=== PATIENT | female | born 1965 | race Hispanic/Latino ===

== ENCOUNTER 2023-02-24 13:34 | Emergency (ER) | payer BC ==
[2023-02-24 14:27] LABS: #Basophils 0.1 10x3/uL (0.0-0.2); #Eosinphils 0.1 10x3/uL (0.0-0.5); #Monocytes 0.3 10x3/uL (0.0-1.1); %Basophils 0.7 % (0.0-2.0); %Eosinophils 1.2 % (0.0-6.0); %Lymphocytes 20.5 % (18.0-47.0); %Monocytes 3.5 % (0.0-10.0); %Neutrophils 73.9 % (40.0-75.0); Hemoglobin 14.8 g/dL (12.0-15.5); Mean Corpuscular HGB CONC 33.7 g/dL (32.0-36.0); Mean Corpuscular Hemoglobin 28.5 pg (27.0-33.0); Mean Corpuscular Volume 84.6 fl (81.6-98.3); Mean Platelet Volume 10.1 fl (7.4-10.4); Platelet Count 372 10x3/uL (150-450); RBC Distribution Width 13.1 % (11.5-14.5); Red Blood Cell (RBC) Count 5.19 10x6/uL (3.90-5.03); White Blood Cell (WBC) Count 8.1 10x3/uL (3.5-10.5)
[2023-02-24 14:50] LABS: ALT (SGPT) 30 U/L (8-55); AST (SGOT) 29 U/L (5-34); Albumin 4.8 g/dL (3.5-5.0); Alkaline Phosphatase 87 U/L (40-110); Anion Gap 16 mmol/L (10-20); BUN (Urea Nitrogen) 13 mg/dL (9.8-20.1); Bilirubin, Total 0.9 mg/dL (0.2-1.2); Calc. Creatinine Clearance 0 mL/min (70-130); Calcium 9.6 mg/dL (7.8-10.44); Carbon Dioxide 23 mmol/L (22-29); Chloride 102 mmol/L (98-107); Estimated GFR 90; Globulin 3.1 g/dL (2.4-3.5); Glucose 111 mg/dL (70-105); Lipase 185 U/L (8-78); Potassium 3.6 mmol/L (3.5-5.1); Protein, Total 7.9 g/dL (6.0-8.3); Sodium 137 mmol/L (136-145)
== END 2023-02-24 16:58 | disposition home or self-care (01) ==
LOC: CSHERS 13:34
DX: R07.89 Other chest pain (principal); K85.90 Acute pancreatitis without necrosis or infection, unspecified; I25.10 Atherosclerotic heart disease of native coronary artery without angina pectoris; I10 Essential (primary) hypertension
CPT/HCPCS: 36415; 71045; 80053; 83690; 84484; 85025; 93005

== ENCOUNTER 2024-03-07 23:46 | Observation (INO) | payer BC ==
[2024-03-08 00:55] LABS: Anion Gap 12 mmol/L (10-20); BUN (Urea Nitrogen) 15 mg/dL (9.8-20.1); Calc. Creatinine Clearance 0 mL/min (70-130); Calcium 9.2 mg/dL (7.8-10.44); Carbon Dioxide 26 mmol/L (22-29); Chloride 103 mmol/L (98-107); Estimated GFR 74; Glucose 143 mg/dL (70-105); Sodium 138 mmol/L (136-145)
[2024-03-08 00:58] LABS: #Basophils 0.06 10x3/uL (0.0-0.2); #Eosinphils 0.35 10x3/uL (0.0-0.5); #Monocytes 0.59 10x3/uL (0.0-1.1); #Neutrophils 2.89 10x3/uL (1.5-8.4); %Basophils 0.9 % (0.0-2.0); %Eosinophils 5.3 % (0.0-6.0); %Monocytes 8.9 % (0.0-10.0); %Neutrophils 43.6 % (40.0-75.0); Hematocrit 39.9 % (34.9-44.5); Hemoglobin 14.1 g/dL (12.0-15.5); Mean Corpuscular HGB CONC 35.3 g/dL (32.0-36.0); Mean Corpuscular Hemoglobin 29.7 pg (27.0-33.0); Mean Platelet Volume 10.4 fL (7.4-10.4); Platelet Count 313 10x3/uL (150-450); RBC Distribution Width 13.1 % (11.5-14.5); Red Blood Cell (RBC) Count 4.75 10x6/uL (3.90-5.03); White Blood Cell (WBC) Count 6.6 10x3/uL (3.5-10.5)
[2024-03-08 01:35] LABS: Bilirubin Neg (Negative); Blood, Urine Negative (Negative); Clarity Clear (Clear); Glucose, Urine (Dipstick) Normal (Negative); Ketone, Urine Negative (Negative); Leukocyte Negative (Negative); Nitrite Negative (Negative); Protein, Urine (Dipstick) Negative (Neg-Trace); Specific Gravity, Urine 1.005 (1.005-1.030); Urobilinogen Normal mg/dL (Less than 2)
[2024-03-08 01:45] LABS: Bacteria/HPF None Seen HPF (None Seen); CAUTI Indications for Culture Pelvic or flank pain; RBC/HPF None Seen HPF (0-3); Squamous Epithelial 0-3 HPF (0-3); Urine Culture Reflex No No; WBC/HPF None Seen HPF (0-3)
[2024-03-08] MEDS ORDERED: Zolpidem Tartrate 5 MG TAB PO PRN (02:29)
[2024-03-08] MEDS ORDERED: Ondansetron PF 4 MG/2 ML Vial IVP PRN (02:29)
[2024-03-08] MEDS ORDERED: Calcium Carbonate 500 MG ChewTAB PO PRN (02:29)
[2024-03-08 03:42] VITALS: BMI 35.2
[2024-03-08] MEDS: Potassium Chloride 20 MEQ TAB PO SCH (06:11)
[2024-03-08] MEDS: Acetaminophen 325 MG TAB PO SCH (06:13)
[2024-03-08 08:52] LABS: Anion Gap 15 mmol/L (10-20); BUN (Urea Nitrogen) 10 mg/dL (9.8-20.1); Calc. Creatinine Clearance 96 mL/min (70-130); Calcium 9.4 mg/dL (7.8-10.44); Carbon Dioxide 24 mmol/L (22-29); Chloride 107 mmol/L (98-107); Cholesterol 153 mg/dl (< 200 Desired); Estimated GFR 87; Glucose 150 mg/dL (70-105); HDL Cholesterol 51 mg/dL (>60 Neg Risk); LDL Cholesterol, Calculated 83 mg/dL; Sodium 142 mmol/L (136-145); Triglycerides 96 mg/dL (Less than 150)
[2024-03-08 09:07] LABS: Thyroid Stimulating Hormone 1.2943 uIU/mL (0.35-4.94)
[2024-03-08] MEDS: Diazepam 5 MG TAB PO PRN (09:47)
[2024-03-08] MEDS: Aspirin 81 mg Enteric Coated Tablet PO SCH (10:27)
[2024-03-08] MEDS: Magnesium Oxide 400 MG TAB PO SCH (10:27)
[2024-03-08] MEDS: Bisoprolol Fumarate 5 MG TAB PO SCH (10:39)
[2024-03-08 13:13] LABS: Hemoglobin A1c 5.7 % (4.0-6.0)
[2024-03-08] MEDS ORDERED: Iopamidol 370 76% 100 ML VIAL ONE (15:07)
[2024-03-08 16:47] VITALS: BP 133/75; TEMP 97.5
[2024-03-08] MEDS ORDERED: Enoxaparin 40 MG (0.4 mL) SYRINGE SC SCH (21:00)
[2024-03-08] MEDS ORDERED: Atorvastatin Calcium 40 MG TAB PO SCH (21:00)
== END 2024-03-08 18:22 | disposition home or self-care (01) ==
LOC: CSHERS 23:46 → CSHTELE 03-08 02:18
PROVIDERS: ADMIT Student in an Organized Health Care Education/Training Program; ATTEND Family Medicine
DX: R20.0 Anesthesia of skin (principal); R20.2 Paresthesia of skin; E87.6 Hypokalemia; I10 Essential (primary) hypertension; I25.10 Atherosclerotic heart disease of native coronary artery without angina pectoris; E78.5 Hyperlipidemia, unspecified; R73.9 Hyperglycemia, unspecified; Z90.49 Acquired absence of other specified parts of digestive tract; Z79.899 Other long term (current) drug therapy
CPT/HCPCS: 36415; 70496; 70498; 70551; 80048; 80061; 81001; 82607; 83036; 83735; 84443; 85025; 93005; 93306; G0378; Q9967